=== PATIENT | male | born 1980 | race Hispanic/Latino ===

== ENCOUNTER 2020-11-05 19:33 | Emergency (ER) | payer OTHER ==
[~2020-11-05] VITALS: Ht 167.6 cm; Wt 90.7 kg
[2020-11-05 21:35] VITALS: BP 136/82
== END 2020-11-05 21:35 | disposition home or self-care (01) ==
LOC: FSED 19:45
DX: R05 Cough (principal); U07.1 COVID-19; J12.82 Pneumonia due to coronavirus disease 2019
CPT/HCPCS: 71046; 99283